=== PATIENT | male | born 1985 | race Two or more races ===

== ENCOUNTER 2018-09-15 13:50 | Emergency (ER) | payer OTHER ==
[~2018-09-15] VITALS: Ht 177.8 cm; Wt 92.1 kg
[2018-09-15] MEDS ORDERED: ATOR40TA PO (14:00)
--- NOTE | 2018-09-15 14:57 | NUR ---
Patient discharged to home in stable condition. Written and verbal after care instructions given. Patient verbalizes understanding of instruction. PT REC'D A COPY OF THE DOPPLER RESULTS. PT AMBULATED OUT WITH A SLIGHT LIMP. PT CAME WITH A CAM WALKER BOOT ON. VSS. NAD NOTED.
[2018-09-15 14:59] VITALS: BP 120/78
== END 2018-09-15 14:57 | disposition home or self-care (01) ==
LOC: ER 13:50
DX: S93.692A Other sprain of left foot, initial encounter (principal); E78.00 Pure hypercholesterolemia, unspecified; X58.XXXA Exposure to other specified factors, initial encounter; Y93.89 Activity, other specified; Y92.89 Other specified places as the place of occurrence of the external cause; Y99.8 Other external cause status
CPT/HCPCS: 93971-TC